=== PATIENT | male | born 1965 | race Hispanic/Latino ===

== ENCOUNTER 2020-05-23 22:46 | Observation (INO) | payer OTHER, SELFPAY ==
[2020-05-23] VITALS (8 sets, daily range): BP systolic 120–144; BP diastolic 63–79; PULSE 61–156; RESP 18–22; O2SAT 95–97; BMI 27.1
--- NOTE | 2020-05-23 22:59 | DI.RAD.S_ITS ---
PROCEDURE: XR CHEST 1V INDICATIONS: Chest pain TECHNIQUE: One view of the chest was acquired. COMPARISON: None. FINDINGS: Surgical changes and devices: Partially visualized right shoulder arthroplasty. Suture anchor in the proximal left humerus.. Lungs and pleura: Lungs are clear. No pleural effusions or pneumothorax. Mediastinum: Mediastinal contours appear normal. Heart size is normal. Bones and chest wall: No suspicious bony lesions. Overlying soft tissues appear unremarkable. IMPRESSION: No acute cardiopulmonary disease process. Dictated by: eJsica Nicholas MD, PhD on 05/24/2020 at 9:11 Approved by: Jesica Nicholas MD, PhD on 05/24/2020 at 9:12
[2020-05-23 23:10] LABS: Add Manual Diff / Slide Review NO; Basophils Absolute Auto 100 /uL (0-100); Basophils Percent Auto 1.3 % (0-2); Eosinophils Absolute Auto 200 /uL (0-450); Eosinophils Percent Auto 2.3 % (2-4); Hematocrit 44.9 % (41-53); Hemoglobin 15.1 g/dL (13.5-17.5); Lymphocytes Absolute Auto 3200 /uL (1100-4500); Lymphocytes Percent Auto 30.7 % (25-40); Mean Corpuscular HGB Conc 33.6 % (30-36); Mean Corpuscular Volume 92.3 fL (80-100); Monocytes Absolute Auto 900 /uL (0-900); Monocytes Percent Auto 8.8 % (3-14); Neutrophils Absolute Auto 5900 /uL (1500-7000); Neutrophils Percent Auto 56.9 % (50-75); Platelet Count 157 X10^3/uL (150-400); Red Blood Cell Count 4.87 X10^6/uL (4.5-5.9); Red Cell Distribution Width 14.3 % (11.6-14.8); White Blood Cell Count 10.3 X10^3/uL (4.5-11.0)
--- NOTE | 2020-05-23 23:14 | ED_ITS ---
HPI - Chest Pain General Chief Complaint: Chest Pain Stated Complaint: chest pains Time Seen by Provider: 05/23/20 22:59 Source: patient History of Present Illness HPI narrative: Patient complains off and on chest pain for the past 1 week. With palpitations. No syncope. No numbness tingling weakness no slurred speech or facial droop. Patient is not on any blood thinners other and baby aspirin daily. Patient does take blood pressure medication and cholesterol medication. No prior history of arrhythmia. Denies any drug use or alcohol abuse. EKGs done immediately and shows AFib with RVR rate of 151 but quickly to transitions to sinus bradycardia rate 57. Patient in no distress. Related Data Home Medications Medication Instructions Recorded Confirmed lisinopril 20 mg PO QDAY #0 11/23/16 multivitamin [Multiple Vitamins] 1 tab PO QDAY #0 06/30/17 05/24/20 Previous Rx's Medication Instructions Recorded aspirin 325 mg PO QDAY #90 tab 11/24/16 atorvastatin [Lipitor] 80 mg PO HS #90 11/24/16 Allergies Allergy/AdvReac Type Severity Reaction Status Date / Time No Known Allergies Allergy Uncoded 05/23/20 23:10 Review of Systems Review of Systems Narrative: GENERAL: Denies chills, fatigue, malaise, fever, sweats. HEENT: Denies sinus pain, ear pain, sore throat, difficulty swallowing RESPIRATORY: Denies dyspnea, cough CARDIOVASCULAR: Complains chest pain, palpitations, denies edema, GASTROINTESTINAL: Denies nausea, vomiting, abdominal pain, diarrhea, constipation, melena. : Denies dysuria, frequency, hematuria MUSCULOSKELETAL: denies muscle or bony pain SKIN: Denies rash, skin lesions NEUROLOGIC: Denies weakness, headache, numbness, change in speech, confusion PSYCHIATRIC: No SI or HI or hallucinations ROS Unobtainable: All systems reviewed & are unremarkable except as noted in HPI and below Patient History Medical History (Updated 05/24/20 @ 03:15 by MARIEBTH Soliman-) Elevated LFTs Hyperlipidemia Hypertension, essential Pancreatitis Social History household members: spouse and children Smoking Status: Current every day smoker alcohol intake: former Exam Narrative Exam Narrative: GENERAL: patient appears stated age. Well-nourished, well- developed patient, in no distress, not toxic not dyspneic HEAD: Normocephalic. EYES: Pupils equal round and reactive. No scleral icterus. No injection no discharge ENT: Mucous membranes moist. No drooling no tongue elevation no trismus no malocclusion NECK: Trachea midline. Non tender CARDIOVASCULAR: Regular rate and rhythm without murmurs, gallops, or rubs. Will have interval change in rhythm becoming irregular regular/tachycardia RESPIRATORY: Clear to auscultation. Breath sounds equal bilaterally. No wheezes, rales, or rhonchi. GASTROINTESTINAL: Abdomen soft, non-tender, nondistended. EXTREMITIES: No gross deformities. BACK: Nontender without deformity or crepitance. No flank tenderness. NEURO: AOx4. SKIN: Warm and dry PSYCH: Not anxious, is cooperative Initial Vital Signs Initial Vital Signs: Vital Signs Pulse Rate 75 05/23/20 22:47 Respiratory Rate 22 05/23/20 22:47 Blood Pressure 135/79 05/23/20 22:47 Pulse Oximetry 97 05/23/20 22:47 Course Course Course Narrative: Patient continues to fluctuate between sinus bradycardia and atrial fibrillation with RVR Decision to Admit Date: 05/23/20 Decision to Admit time: 23:19 Orders Ordered: ED Orders 05/23/20 22:59 XR chest 1V Stat EKG-12 Lead Stat 05/23/20 23:00 Complete Blood Count AUTO DIFF Stat Comprehensive Metabolic Panel Stat D Dimer Stat Lipase Stat Magnesium Stat Partial Thromboplastin Time Stat Prothrombin Time INR Stat Thyroid Stimulating Hormone Stat Troponin & CK Cardiac Panel Stat 05/23/20 23:40 COVID19 Stat Enoxaparin Sodium (Enoxaparin 40 Mg/0.4 Ml Syringe) 40 mg SUBCUT DAILY KARYN DILTIAZEM (Diltiazem 125 Mg/125 Ml-D5w) 125 mg in 125 mls @ 5 mls/hr IV TITRATE KARYN; Protocol Last Titration: 05/24/20 02:45 Dose: 0 mg/hr, 0 mls/hr Documented by: Titration: 05/24/20 02:15 Dose: 5 mg/hr, 5 mls/hr Documented by: Titration: 05/24/20 01:46 Dose: 10 mg/hr, 10 mls/hr Documented by: Admin: 05/24/20 01:07 Dose: 15 mg/hr, 15 mls/hr Documented by: BLU Naloxone HCl (Naloxone 0.4 Mg/Ml Vial) 0.2 mg IV Q2MIN PRN PRN Reason: Opiate Reversal Discontinued Medications DILTIAZEM (Diltiazem 125 Mg/125 Ml-D5w) 125 mg in 125 mls @ 5 mls/hr IV TITRATE KARYN; Protocol Last Titration: 05/23/20 23:58 Dose: 15 mg/hr, 15 mls/hr Documented by: Titration: 05/23/20 23:40 Dose: 10 mg/hr, 10 mls/hr Documented by: Admin: 05/23/20 23:25 Dose: 5 mg/hr, 5 mls/hr Documented by: OMID Reevaluation(s) Reevaluation #1: No changes. Continues to alternate between sinus bradycardia and AFib with RVR Time: 23:19 Consultations Consultation #1: Spoke with cardiology Dr. Murry, start Cardizem drip here. May admit here. Time: 23:19 Consultation #2: Spoke with hospitalist, she will admit patient Time: 23:49 Vital Signs Vital signs: Vital Signs - 8 hr 05/23/20 22:47 05/23/20 23:04 05/23/20 23:09 Pulse Rate 75 153 H 113 H Respiratory Rate 22 Blood Pressure 135/79 144/75 H Pulse Oximetry 97 97 97 05/23/20 23:30 Pulse Rate 105 H Respiratory Rate Blood Pressure Pulse Oximetry 95 MDM - Chest Pain Differential Diagnosis Differential diagnosis: Likely other (New onset atrial fibrillation) Lab Data Attestation: I reviewed the patient's lab results. Result diagrams: 05/23/20 23:00 05/23/20 23:00 Labs: Lab Results 05/23/20 05/23/20 05/23/20 Range/Units 23:00 23:00 23:00 WBC 10.3 (4.5-11.0) X10^3/uL RBC 4.87 (4.5-5.9) X10^6/uL Hgb 15.1 (13.5-17.5) g/dL Hct 44.9 (41-53) % MCV 92.3 (80-100) fL MCH 31.0 (26-34) PG MCHC 33.6 (30-36) % RDW 14.3 (11.6-14.8) % Plt Count 157 (150-400) X10^3/uL Neut % (Auto) 56.9 (50-75) % Lymph % (Auto) 30.7 (25-40) % [place] % (Auto) 8.8 (3-14) % Eos % (Auto) 2.3 (2-4) % Baso % (Auto) 1.3 (0-2) % Neut # (Auto) 5900 (3736-3344) /uL Lymph # (Auto) 3200 (5260-6103) /uL [place] # (Auto) 900 (0-900) /uL Eos # (Auto) 200 (0-450) /uL Baso # (Auto) 100 (0-100) /uL PT 12.2 (10.1-12.7) SECONDS INR 1.1 (0.9-1.3) APTT 36 (26.4-36.2) SECONDS D-Dimer 205 (<230) ng/mL Sodium 136 L (137-145) mmol/L Potassium 4.3 (3.4-5.1) mmol/L Chloride 107 (98-107) mmol/L Carbon Dioxide 24 (22-32) mmol/L BUN 20 (9-20) mg/dL Creatinine 0.78 (0.66-1.25) mg/dL Estimated GFR > 60.0 (>60) mL/min BUN/Creatinine Ratio 25.6 H (6-22) Glucose 95 (70-100) mg/dL Calcium 9.1 (8.4-10.2) mg/dL Magnesium (1.6-2.3) mg/dL Total Bilirubin 0.4 (0.2-1.3) mg/dL AST 27 (17-59) IU/L ALT 19 (<50) IU/L Alkaline Phosphatase 94 (38-126) U/L Total Creatine Kinase 104 (55-170) U/L CK-MB (CK-2) 1.41 (<2.37) ng/mL CK-MB (CK-2) Rel Index 1.4 L (1.5-5.0) % Troponin I < 0.012 (0.01-0.034) ng/mL Total Protein 7.9 (6.3-8.2) g/dL Albumin 4.3 (3.5-5.0) g/dL Globulin 3.6 (1.7-4.1) g/dL Albumin/Globulin Ratio 1.2 (1.0-2.8) Lipase 268 (23-300) U/L TSH (0.47-4.68) uIU/mL 05/23/20 05/23/20 Range/Units 23:00 23:00 WBC (4.5-11.0) X10^3/uL RBC (4.5-5.9) X10^6/uL Hgb (13.5-17.5) g/dL Hct (41-53) % MCV (80-100) fL MCH (26-34) PG MCHC (30-36) % RDW (11.6-14.8) % Plt Count (150-400) X10^3/uL Neut % (Auto) (50-75) % Lymph % (Auto) (25-40) % [place] % (Auto) (3-14) % Eos % (Auto) (2-4) % Baso % (Auto) (0-2) % Neut # (Auto) (8086-9513) /uL Lymph # (Auto) (7873-3766) /uL [place] # (Auto) (0-900) /uL Eos # (Auto) (0-450) /uL Baso # (Auto) (0-100) /uL PT (10.1-12.7) SECONDS INR (0.9-1.3) APTT (26.4-36.2) SECONDS D-Dimer (<230) ng/mL Sodium (137-145) mmol/L Potassium (3.4-5.1) mmol/L Chloride (98-107) mmol/L Carbon Dioxide (22-32) mmol/L BUN (9-20) mg/dL Creatinine (0.66-1.25) mg/dL Estimated GFR (>60) mL/min BUN/Creatinine Ratio (6-22) Glucose (70-100) mg/dL Calcium (8.4-10.2) mg/dL Magnesium 1.8 (1.6-2.3) mg/dL Total Bilirubin (0.2-1.3) mg/dL AST (17-59) IU/L ALT (<50) IU/L Alkaline Phosphatase (38-126) U/L Total Creatine Kinase (55-170) U/L CK-MB (CK-2) (<2.37) ng/mL CK-MB (CK-2) Rel Index (1.5-5.0) % Troponin I (0.01-0.034) ng/mL Total Protein (6.3-8.2) g/dL Albumin (3.5-5.0) g/dL Globulin (1.7-4.1) g/dL Albumin/Globulin Ratio (1.0-2.8) Lipase (23-300) U/L TSH 4.19 (0.47-4.68) uIU/mL Imaging Data Chest x-ray: Radiologist's Impression: Results faxed, chest x-ray no acute disease in the chest ECG Data Attestation: I personally reviewed and interpreted this ECG as follows: Interpretation: First EKG at 11:02 p.m.. Atrial fibrillation with RVR rate 151. No ST elevation or depression repeat EKG at 11:03 p.m.. Sinus bradycardia rate [address] elevation or depression. MDM Narrative Medical decision making narrative: Appropriate for admission. New onset AFib. No cardioversion indicated this time. Reviewed with strategic solutions consultant Discharge Plan Departure Patient Disposition: Admitted as Observation Clinical Impression: Atrial fibrillation, new onset Admit Date/Time: 05/23/20 23:30 Admit Provider: Eunice Kilgore
[2020-05-23 23:20] LABS: PTT Partial Thromboplastin Tim 36 SECONDS (26.4-36.2)
[2020-05-23 23:21] LABS: Alanine Aminotransferase 19 IU/L (<50); Albumin 4.3 g/dL (3.5-5.0); Albumin Globulin Ratio 1.2 (1.0-2.8); Alkaline Phosphatase 94 U/L (38-126); Aspartate Aminotransferase 27 IU/L (17-59); BUN Creatinine Ratio 25.6 (6-22); Bilirubin Total 0.4 mg/dL (0.2-1.3); Blood Urea Nitrogen 20 mg/dL (9-20); Calcium 9.1 mg/dL (8.4-10.2); Carbon Dioxide 24 mmol/L (22-32); Chloride 107 mmol/L (98-107); Creatine Kinase 104 U/L (55-170); Estimated Glomerular Filt Rate > 60.0 mL/min (>60); Globulin 3.6 g/dL (1.7-4.1); Glucose 95 mg/dL (70-100); HEMOLYSIS 29 (0-50); Lipase 268 U/L (23-300); Potassium 4.3 mmol/L (3.4-5.1); Sodium 136 mmol/L (137-145); Total Protein 7.9 g/dL (6.3-8.2)
[2020-05-23] MEDS: DILTIAZEM 125 MG/125 ML PIGGYBACK IV (23:25)
[2020-05-23 23:28] LABS: INR 1.1 (0.9-1.3); Prothrombin Time 12.2 SECONDS (10.1-12.7)
[2020-05-23 23:31] LABS: D Dimer 205 ng/mL (<230)
[2020-05-23 23:32] LABS: Troponin I < 0.012 ng/mL (0.01-0.034)
[2020-05-23 23:36] LABS: CKMB % Relative Index 1.4 % (1.5-5.0); Creatine Kinase MB 1.41 ng/mL (<2.37)
[2020-05-23 23:38] LABS: Magnesium 1.8 mg/dL (1.6-2.3)
[2020-05-24] VITALS (39 sets, daily range): BP systolic 82–120; BP diastolic 50–74; PULSE 38–130; RESP 11–31; TEMP 36.1–36.7; O2SAT 95–99; BMI 27.6
[2020-05-24 00:07] LABS: COVID19 -Nasal RAPID Negative (Negative)
[2020-05-24 00:10] LABS: Thyroid Stimulating Hormone 4.19 uIU/mL (0.47-4.68)
[2020-05-24] MEDS: DILTIAZEM 125 MG/125 ML PIGGYBACK 15 MG IV (01:07)
--- NOTE | 2020-05-24 01:17 | PC.ADMIT ---
Addendum entered by Irais Gray R.N. 05/24/20 05:26: 0245 Diltiazem GTT off. Patient with HR sustaining 45-60's and BP down to 90/50 with MAP > 65. Hospitalist aware. Tele currently SB with bigeminal PVCs and PACs. Patient resting in NAD. Addendum entered by Irais Gray R.N. 05/24/20 01:47: Patient sustaining SB in the 40's for approximately 10 minutes with frequent bigeminal PVCs. Diltiazem decreased to 10 mg/hour. Patient asleep in NAD. Original Note: [address] Admission Note: The patient,Ayad Grigsby,55 y/o, was given written information regarding hospital policies, unit procedures and contact persons. Patient's smoking status: Current every day smoker. Vital Signs - 8 hr 05/23/20 22:47 05/23/20 23:04 05/23/20 23:09 Temperature Pulse Rate 75 153 H 113 H Respiratory Rate 22 Blood Pressure 135/79 144/75 H Pulse Oximetry 97 97 97 05/23/20 23:30 05/23/20 23:31 05/23/20 23:40 Temperature Pulse Rate 105 H 61 145 H Respiratory Rate Blood Pressure 125/68 131/69 Pulse Oximetry 95 95 96 05/23/20 23:50 05/23/20 23:58 05/24/20 00:00 Temperature Pulse Rate 65 146 H 130 H Respiratory Rate 18 31 H Blood Pressure 120/63 104/64 Pulse Oximetry 95 95 05/24/20 00:10 05/24/20 00:20 05/24/20 00:50 Temperature 97.0 F L Pulse Rate 57 L 103 H 69 Respiratory Rate 23 23 20 Blood Pressure 105/61 104/54 L 104/62 Pulse Oximetry 95 95 96 05/24/20 01:10 Temperature Pulse Rate 55 L Respiratory Rate 22 Blood Pressure 106/66 Pulse Oximetry 95 Patient arrived to room 231 via stretcher. Able to pivot to bed without issue. A/O X 3 in NAD. VSS, telemetry rapid Afib with variable HR. Diltiazem GTT infusing at 15mg/hour per protocol. HR as low as 45 and as high as 150. BP stable. Patient reports chest discomfort at rest described as substernal and dull that is intermittent. Declines analgesia at this time. Sp02 95-98% RA. Urinal to void. Refusing SCD's. Educated on Afib and the importance of SCD's and continued to decline. Oriented to room, call light and plan of care. Verbalized understanding.
--- NOTE | 2020-05-24 03:01 | PM.HP.1 ---
History of Present Illness History of Present Illness Date Patient Seen: 05/24/20 Time Patient Seen: 00:17 Chief complaint: chest pains Narrative: Patient is a 55-year-old male Ayad Grigsby who presented to the ER with complaints of off and on chest pain x 1 week with palpitations and no syncope, numbness, weakness, slurred speech or facial droop. Patient states that the chest pain comes and goes and he gets shortness of breath when it starts beating really fast. Nothing seems to worsen the pain nor provoke it, he denies diaphoresis, changes in balance walking or coordination. Patient recalls that he was told in the emergency room at [facility] on a previous visit that he had had a stroke. Patient states that he has been having left hand numbness and numbness to the left side of his mouth for an undetermined amount of time without difficulty swallowing or slurred speech but that this sensation is similar to what he experienced a few years ago when he was said to have had a stroke. Patient recalls that his brother has had 3 open-heart procedures with stent placement and that his father of an aneurysm. Patient has a history hypertension and hyperlipidemia. Patient is not on any blood thinners other and baby aspirin daily. No prior history of arrhythmia. Denies any drug use or alcohol abuse. In the emergency room EKGs done immediately and shows AFib with RVR rate of 151 but quickly to transitions to sinus bradycardia rate 57. Patient was in no distress. CK-MB 1.4, troponin negative, lipase 268, BUN creatinine ratio 25.6. Patient's AFib continued with an uncontrolled rate insert was placed on a diltiazem drip and admitted. Patient History Medical History (Updated 05/24/20 @ 03:15 by [facility]) Elevated LFTs Hyperlipidemia Hypertension, essential Pancreatitis Family & Social History Social History: household members spouse,children Prior Living Arrangements House Safety & Behavioral: Feels Safe in Current Yes Environment Been Physically Hurt or No Threatened By a Person Suicidal Ideation Description None Suicide Plan Description No Plan Tobacco & Substance use: Tobacco type cigarettes Smoking Status Current every day smoker alcohol intake former alcohol intake frequency holiday/special occasion Substance Use Type does not use Meds Home Medications and Allergies Home Medications Medication Instructions Recorded Confirmed Type lisinopril 20 mg PO QDAY #0 11/23/16 History aspirin 325 mg PO QDAY #90 tab 11/24/16 05/24/20 Rx atorvastatin [Lipitor] 80 mg PO HS #90 11/24/16 Rx multivitamin [Multiple Vitamins] 1 tab PO QDAY #0 06/30/17 05/24/20 History Allergies Allergy/AdvReac Type Severity Reaction Status Date / Time No Known Allergies Allergy Uncoded 05/23/20 23:10 Review of Systems Review of Systems ROS: Yes All systems reviewed with the patient and are negative except as otherwise documented Cardiovascular Cardiovascular: Reports chest pain and Reports rapid heart rate Exam Vital Signs (past 8 hours): - 05/23/20 22:47 05/23/20 23:04 05/23/20 23:09 Temperature Pulse Rate 75 153 H 113 H Respiratory Rate 22 Blood Pressure 135/79 144/75 H Pulse Oximetry 97 97 97 05/23/20 23:30 05/23/20 23:31 05/23/20 23:40 Temperature Pulse Rate 105 H 61 145 H Respiratory Rate Blood Pressure 125/68 131/69 Pulse Oximetry 95 95 96 05/23/20 23:50 05/23/20 23:58 05/24/20 00:00 Temperature Pulse Rate 65 146 H 130 H Respiratory Rate 18 31 H Blood Pressure 120/63 104/64 Pulse Oximetry 95 95 05/24/20 00:10 05/24/20 00:20 05/24/20 00:41 Temperature Pulse Rate 57 L 103 H 66 Respiratory Rate 23 23 25 H Blood Pressure 105/61 104/54 L Pulse Oximetry 95 95 96 05/24/20 00:50 05/24/20 01:00 05/24/20 01:10 Temperature 97.0 F L Pulse Rate 69 59 L 55 L Respiratory Rate 20 20 22 Blood Pressure 104/62 106/66 106/66 Pulse Oximetry 96 95 95 05/24/20 01:20 05/24/20 01:30 05/24/20 01:40 Temperature Pulse Rate 97 H 48 L 49 L Respiratory Rate 18 15 15 Blood Pressure 106/73 102/55 L Pulse Oximetry 97 96 96 05/24/20 02:00 05/24/20 02:20 05/24/20 02:21 Temperature Pulse Rate 45 L 46 L 45 L Respiratory Rate 15 14 13 Blood Pressure 101/56 L 86/53 L Pulse Oximetry 96 97 97 Oxygen Delivery Method Room Air Oxygen Flow Rate 0 Narrative Exam Narrative: GENERAL: patient appears stated age. Well-nourished, well-developed patient, in no distress, not toxic not dyspneic HEAD: Normocephalic. EYES: Pupils equal round and reactive. No scleral icterus. No injection no discharge ENT: Mucous membranes moist. No drooling no tongue elevation no trismus no malocclusion NECK: Trachea midline. Non tender CARDIOVASCULAR: Regular rate and rhythm without murmurs, gallops, or rubs. Will have interval change in rhythm becoming irregular regular/tachycardia RESPIRATORY: Clear to auscultation. Breath sounds equal bilaterally. No wheezes, rales, or rhonchi. GASTROINTESTINAL: Abdomen soft, non-tender, nondistended. EXTREMITIES: No gross deformities. BACK: Nontender without deformity or crepitance. No flank tenderness. NEURO: AOx4. SKIN: Warm and dry PSYCH: Not anxious, is cooperative Objective Labs Result Diagrams: 05/23/20 23:00 05/23/20 23:00 Labs: Laboratory Results - last 24 hr 05/23/20 05/23/20 05/23/20 23:00 23:00 23:00 WBC 10.3 RBC 4.87 Hgb 15.1 Hct 44.9 MCV 92.3 MCH 31.0 MCHC 33.6 RDW 14.3 Plt Count 157 Neut % (Auto) 56.9 Lymph % (Auto) 30.7 [place] % (Auto) 8.8 Eos % (Auto) 2.3 Baso % (Auto) 1.3 Neut # (Auto) 5900 Lymph # (Auto) 3200 [place] # (Auto) 900 Eos # (Auto) 200 Baso # (Auto) 100 PT 12.2 INR 1.1 APTT 36 D-Dimer 205 Sodium 136 L Potassium 4.3 Chloride 107 Carbon Dioxide 24 BUN 20 Creatinine 0.78 Estimated GFR > 60.0 BUN/Creatinine Ratio 25.6 H Glucose 95 Calcium 9.1 Magnesium Total Bilirubin 0.4 AST 27 ALT 19 Alkaline Phosphatase 94 Total Creatine Kinase 104 CK-MB (CK-2) 1.41 CK-MB (CK-2) Rel Index 1.4 L Troponin I < 0.012 Total Protein 7.9 Albumin 4.3 Globulin 3.6 Albumin/Globulin Ratio 1.2 Lipase 268 TSH COVID-19 PCR 05/23/20 05/23/20 05/23/20 23:00 23:00 23:40 WBC RBC Hgb Hct MCV MCH MCHC RDW Plt Count Neut % (Auto) Lymph % (Auto) [place] % (Auto) Eos % (Auto) Baso % (Auto) Neut # (Auto) Lymph # (Auto) [place] # (Auto) Eos # (Auto) Baso # (Auto) PT INR APTT D-Dimer Sodium Potassium Chloride Carbon Dioxide BUN Creatinine Estimated GFR BUN/Creatinine Ratio Glucose Calcium Magnesium 1.8 Total Bilirubin AST ALT Alkaline Phosphatase Total Creatine Kinase CK-MB (CK-2) CK-MB (CK-2) Rel Index Troponin I Total Protein Albumin Globulin Albumin/Globulin Ratio Lipase TSH 4.19 COVID-19 PCR Negative Assessment & Plan Assessment & Plan narrative: Patient is a 55-year-old male admitted with new onset uncontrolled rate atrial fibrillation with RVR with a history of CVA, family history of cardiovascular conditions, and a medical history of hypertension, and hyperlipidemia. Patient was admitted to the ICU in telemedicine on a Diltiazem Drip requiring a high acuity of critical care management decision-making. 1. Atrial fibrillation with RVR, rate of 151, acute, present on admission -CK-MB 1.4, troponin negative, lipase 268, BUN creatinine ratio 25.6, potassium at goal 4.3, Mag pending. -patient placed on diltiazem drip titrating for sustained HR <100, monitoring blood pressure and heart rate -monitoring: vital signs Q hour, I&O Q shift, patient placed in ICU telemedicine -enoxaparin 40 mg, and SCDs -EKG : Normal sinus, AFib with RVR with a rate at 1:[address] changes, chest x-ray: No acute disease process present, CK-MB negative troponin negative, head CT negative, labs ordered: D-dimer, lipase, magnesium, PT, TSH, troponin, CK-MB, echo to ordered for tomorrow. 2. Essential hypertension, chronic, well controlled, not present on admission -continue patient's lisinopril 20 mg once daily 3. Hyperlipidemia, chronic, not present on admission -continue patient's atorvastatin 80 mg once daily Code status: Full code Decision maker: [id number]: COVID PCR: Negative VTE prophylaxis: Enoxaparin 40 mg Scores GCS [place] coma scale eye opening: Spontaneous [place] coma scale verbal response: Orientated [place] coma scale motor response: Obey commands Kate coma scale total score: 15 NIHSS Level of Conciousness: Alert, keenly responsive Ask month/age: Answers both questions correctly. Open/close eyes, close hand: Performs both tasks correctly Best gaze horizontal: Normal Visual bustillo: No visual loss Facial palsy: Normal symetrical movement Left arm drift: No drift for full 10 sec Right arm drift: No drift for full 10 sec Left leg drift: No drift for full 5 sec Right leg drift: No drift for full 5 sec Limb ataxia: Absent Sensory on face/arms/legs: Normal, no sensory loss Best language: No aphasia, normal Dysarthria: Normal Extinction or inattention: No abnormality Total NIH Stroke scale score: 0 CHADS-VASc Congestive heart failure: no Hypertension: yes Age 75 years or older: no Diabetes mellitus: no Stroke, TIA, or TE: yes Vascular disease: no Age 65 to 74 years: no Sex category (female): Male CHADS-VASc Score: 3 Quality VTE Deep Vein Thrombosis/Pulmonary Embolism Present on Admission: No
[2020-05-24 06:43] LABS: D Dimer 228 ng/mL (<230)
[2020-05-24] MEDS: METOPROLOL ER 25 MG TABLET 12.5 MG PO (09:19)
[2020-05-24] MEDS: ENOXAPARIN 40 MG/0.4 ML SYRINGE SUBCUT (09:19)
[2020-05-24] MEDS: ASPIRIN EC 325 MG TABLET PO (09:19)
--- NOTE | 2020-05-24 09:40 | PC.NURSE ---
0745- Dr. Gustafson on rounds. Reported pt HR 40s-60s SB frequent/bigeminal PVCs. Clarified metoprolol dosing. Orders received. Pt is AO x4. He states he has generalized chest discomfort 5/10, not localized to any specific area, describes as dull. He states this is an improvement from admission when his discomfort was 8-9/10. He states it is not associated with activity. He notes palpitations and shortness of breath with increased HRs. He states that getting up and walking around helps with the discomfort and improves his breathing. He reports having a similar episode a long time ago (unsure of date) but states that it improved without intervention/medical attention. He reports baseline numbness to left side of mouth and left fingers due to a past stroke. He denies dizziness/lightheadedness/visual changes. He is making his needs known with clear, logical speech and asking appropriate questions regarding plan of care. He is using call light and agreeable to wait for assist before getting OOB.
--- NOTE | 2020-05-24 11:30 | DI.ECHO.S_ITS ---
[facility]---------+ [facility] +---------+ : : [address] : : : : [id number] : : : : Phone: [phone]+ Echocardiogram Report + + :Name: DENISE REDMAN Study Date: 05/24/2020 Height: 66 in : :[facility] Weight: 171 lb : : Gender: Male BSA: 1.9 m2 : :: 1965 Age: 55 yrs BP: 102/60 mmHg: :Reason For Study: New onset atrial fibrillation : : Performed By: Gabriella Lopze : :Referring: HERNÁN COLEMAN : + + Interpretation Summary The left ventricle is normal in size and wall thickness. The ejection fraction is estimated to be 60-65%. The right ventricle is normal in size and function. There is mild tricuspid regurgitation. The right ventricular systolic pressure is estimated to be at least 22 mmHg based on an estimated right atrial pressure of 3 mm Hg. Procedure: A two-dimensional transthoracic echocardiogram with color flow and Doppler was performed. The study quality was technically adequate. There is no prior echocardiogram noted for this patient. The patient was in sinus bradycardia with heart rates between 50-54 bpm during the exam. Left Ventricle: The left ventricle is normal in size and wall thickness. There is no thrombus. The ejection fraction is estimated to be 60-65%. There are no focal wall motion abnormalities. Diastolic parameters suggest probable normal left ventricular diastolic function and normal filling pressures. Right Ventricle: The right ventricle is normal in size and function. Atria: The left atrium is moderately dilated. Right atrial size is normal. There is no Doppler evidence for an interatrial shunt. The thickening of interatrial septum suggests lipomatous hypertrophy. Mitral Valve: The mitral valve is normal in structure and function. There is trace mitral regurgitation. Aortic Valve: The aortic valve is trileaflet. The aortic valve opens well. There is no aortic valve stenosis. No aortic regurgitation is present. Tricuspid Valve: The tricuspid valve is normal. There is mild tricuspid regurgitation. The right ventricular systolic pressure is estimated to be at least 22 mmHg based on an estimated right atrial pressure of 3 mm Hg. Pulmonic Valve: The pulmonic valve is not well seen, but is grossly normal. Great Vessels: The aortic root is borderline dilated. The ascending aorta is normal in size. The pulmonary artery is normal size. The IVC is of normal diameter and collapses greater than 50% with a sniff. This suggests a low right atrial pressure of 3 mm Hg. Pericardium/ Pleura There is no pericardial effusion. MMode/2D Measurements & Calculations LVIDd: 5.1 cm LVOT diam: 2.2 cm LVIDs: 3.6 cm Ao root diam: 3.6 cm FS: 29.3 % asc Aorta Diam: 3.0 cm IVSd: 0.89 cm LVPWd: 0.85 cm LV bermudez. diameter/BSA (cm/m^2): 2.7 LV sys. diameter/BSA (cm/m^2): 1.9 LA A2 area: 26.5 cm2 RA long axis: 5.3 cm LA A4 area: 25.6 cm2 RA area: 18.7 cm2 LA length (vol): 6.7 cm RA vol: 56.2 ml LA vol: 86.5 ml RA : 30.1 ml/m2 LA vol index: 46.2 ml/m2 IVC diam: 1.9 cm RVD1 (basal): 3.3 cm TAPSE: 1.9 cm Doppler Measurements & Calculations Ao V2 max: 145.3 cm/sec LVOT Max Kenny: 126.2 cm/sec Ao V2 mean: 100.0 cm/sec LV V1 max P.4 mmHg Ao max P.4 mmHg LV V1 VTI: 24.8 cm Ao mean P.5 mmHg ELAN(I,D): 3.1 cm2 Ao V2 VTI: 29.4 cm ELAN(V,D): 3.2 cm2 sev ratio: 0.84 ELAN indexed to BSA (cm^2/m^2): 1.7 MV E max kenny: 75.6 cm/sec TR max kenny: 218.4 cm/sec MV A max kenny: 43.1 cm/sec TR max P.1 mmHg MV E/A: 1.8 PA V2 max: 79.9 cm/sec Med Peak E' Kenny: 7.9 cm/sec PA V2 mean: 57.4 cm/sec E/E' med: 9.6 PA mean P.5 mmHg Lat Peak E' Kenny: 11.2 cm/sec PA Accel Time: 0.15 sec E/E' lat: 6.8 E/e' average: 8.2 MV P1/2t: 67.5 msec MV P1/2t max kenny: 76.1 cm/sec SV(LVOT): 91.3 ml MVA(P12t): 3.3 cm2 Reading Physician:01:33 PM
--- NOTE | 2020-05-24 14:22 | P.DS_ITS ---
History of Present Illness History of Present Illness Date Patient Seen: 05/24/20 Time Patient Seen: 14:22 Chief complaint: chest pains Narrative: As per MARIBETH Soliman: Patient is a 55-year-old male Ayad Grigsby who presented to the ER with complaints of off and on chest pain x 1 week with palpitations and no syncope, numbness, weakness, slurred speech or facial droop. Patient states that the chest pain comes and goes and he gets shortness of breath when it starts beating really fast. Nothing seems to worsen the pain nor provoke it, he denies diaphoresis, changes in balance walking or coordination. Patient recalls that he was told in the emergency room at [facility] on a previous visit that he had had a stroke. Patient states that he has been having left hand numbness and numbness to the left side of his mouth for an undetermined amount of time without difficulty swallowing or slurred speech but that this sensation is similar to what he experienced a few years ago when he was said to have had a stroke. Patient recalls that his brother has had 3 open-heart procedures with stent placement and that his father of an aneurysm. Patient has a history hypertension and hyperlipidemia. Patient is not on any blood thinners other and baby aspirin daily. No prior history of arrhythmia. Denies any drug use or alcohol abuse. In the emergency room EKGs done immediately and shows AFib with RVR rate of 151 but quickly to transitions to sinus bradycardia rate 57. Patient was in no distress. CK-MB 1.4, troponin negative, lipase 268, BUN creatinine ratio 25.6. Patient's AFib continued with an uncontrolled rate insert was placed on a diltiazem drip and admitted. Discharge Providers Provider Date of admission: 05/23/20 23:30 Discharge Date: 05/24/20 Discharge provider: Rodrigo Gustafson DO Summary Hospital Course Discharge Diagnosis: 1. paroxysmal atrial fibrillation with rapid ventricular response, acute, present on admission, new diagnosis, resolved. 2. Essential hypertension, chronic, stable. 3. HLD, chronic, stable. Hospital Course: This is a 55-year-old male with a past medical history of hypertension and hyperlipidemia who presented with 1 week of chest discomfort wi th palpitations. He was found to be in AFib with RVR. He was admitted after his rate was unable to be controlled and he was placed on a diltiazem infusion. He quickly converted to normal sinus rhythm and remained in normal sinus rhythm after diltiazem infusion had been stopped. He was started on low-dose metoprolol 12.5 mg twice daily. Echocardiogram was unremarkable and showed a normal ejection fraction. His chads Vasc score was 1 for only hypertension and the patient is already taking full-dose aspirin. He denied prior CVA or history of diabetes. I recommended that he follow-up with his primary care provider for possible referreal to Cardiology next week. Exam Vital Signs (past 8 hours): - 05/24/20 06:23 05/24/20 06:24 05/24/20 06:40 Temperature Pulse Rate 82 68 48 L Respiratory Rate 16 18 22 Blood Pressure 100/56 L 100/56 L 115/74 Pulse Oximetry 98 99 96 05/24/20 07:00 05/24/20 07:20 05/24/20 07:40 Temperature Pulse Rate 49 L 50 L 48 L Respiratory Rate 18 22 16 Blood Pressure 102/60 120/63 103/65 Pulse Oximetry 96 98 97 05/24/20 08:00 05/24/20 08:55 05/24/20 09:00 Temperature 97.4 F L Pulse Rate 50 L 50 L 54 L Respiratory Rate 18 31 H 26 H Blood Pressure 113/61 116/66 Pulse Oximetry 96 97 98 05/24/20 12:00 Temperature 98.1 F Pulse Rate 53 L Respiratory Rate 20 Blood Pressure 107/64 Pulse Oximetry 97 Oxygen Delivery Method Room Air Oxygen Flow Rate 0 Narrative Exam Narrative: GENERAL APPEARANCE: Well developed, well nourished, in no acute distress. SKIN: Inspection of the skin reveals no rashes, ulcerations or petechiae. HEENT: Normocephalic atraumatic, extraocular muscles are intact, oropharynx is clear and mucous membranes are moist, neck is supple without adenopathy NECK: Supple and symmetric. There was no thyroid enlargement, and no tenderness, or masses were felt. CHEST: Normal AP diameter and normal contour without any kyphoscoliosis. LUNGS: Auscultation of the lungs revealed no wheezes, rhonchi, or rales. CARDIOVASCULAR: There was a regular rate and rhythm without any murmurs, gallops, rubs. Peripheral pulses were 2+ and symmetric. ABDOMEN: Soft and nontender with normal bowel sounds. No ascites was noted. MUSCULOSKELETAL: There was no tenderness or effusions noted. Muscle strength and tone were normal. EXTREMITIES: No cyanosis, clubbing or edema. NEUROLOGIC: Alert and oriented x 3. Normal affect. Gait was normal. Strength is +5/5 in the Upper Extremities and Lower Extremities Bilaterally. Sensation to touch was normal. Objective Labs Result Diagrams: 05/23/20 23:00 05/23/20 23:00 Labs: Laboratory Results - last 24 hr 05/23/20 05/23/20 05/23/20 23:00 23:00 23:00 WBC 10.3 RBC 4.87 Hgb 15.1 Hct 44.9 MCV 92.3 MCH 31.0 MCHC 33.6 RDW 14.3 Plt Count 157 Neut % (Auto) 56.9 Lymph % (Auto) 30.7 Gladwin % (Auto) 8.8 Eos % (Auto) 2.3 Baso % (Auto) 1.3 Neut # (Auto) 5900 Lymph # (Auto) 3200 Gladwin # (Auto) 900 Eos # (Auto) 200 Baso # (Auto) 100 PT 12.2 INR 1.1 APTT 36 D-Dimer 205 Sodium 136 L Potassium 4.3 Chloride 107 Carbon Dioxide 24 BUN 20 Creatinine 0.78 Estimated GFR > 60.0 BUN/Creatinine Ratio 25.6 H Glucose 95 Calcium 9.1 Magnesium Total Bilirubin 0.4 AST 27 ALT 19 Alkaline Phosphatase 94 Total Creatine Kinase 104 CK-MB (CK-2) 1.41 CK-MB (CK-2) Rel Index 1.4 L Troponin I < 0.012 Total Protein 7.9 Albumin 4.3 Globulin 3.6 Albumin/Globulin Ratio 1.2 Lipase 268 TSH Nasal Screen MRSA (PCR) COVID-19 PCR 05/23/20 05/23/20 05/23/20 23:00 23:00 23:40 WBC RBC Hgb Hct MCV MCH MCHC RDW Plt Count Neut % (Auto) Lymph % (Auto) Gladwin % (Auto) Eos % (Auto) Baso % (Auto) Neut # (Auto) Lymph # (Auto) Gladwin # (Auto) Eos # (Auto) Baso # (Auto) PT INR APTT D-Dimer Sodium Potassium Chloride Carbon Dioxide BUN Creatinine Estimated GFR BUN/Creatinine Ratio Glucose Calcium Magnesium 1.8 Total Bilirubin AST ALT Alkaline Phosphatase Total Creatine Kinase CK-MB (CK-2) CK-MB (CK-2) Rel Index Troponin I Total Protein Albumin Globulin Albumin/Globulin Ratio Lipase TSH 4.19 Nasal Screen MRSA (PCR) COVID-19 PCR Negative 05/24/20 05/24/20 00:40 06:25 WBC RBC Hgb Hct MCV MCH MCHC RDW Plt Count Neut % (Auto) Lymph % (Auto) Gladwin % (Auto) Eos % (Auto) Baso % (Auto) Neut # (Auto) Lymph # (Auto) Gladwin # (Auto) Eos # (Auto) Baso # (Auto) PT INR APTT D-Dimer 228 Sodium Potassium Chloride Carbon Dioxide BUN Creatinine Estimated GFR BUN/Creatinine Ratio Glucose Calcium Magnesium Total Bilirubin AST ALT Alkaline Phosphatase Total Creatine Kinase CK-MB (CK-2) CK-MB (CK-2) Rel Index Troponin I Total Protein Albumin Globulin Albumin/Globulin Ratio Lipase TSH Nasal Screen MRSA (PCR) Negative for mrsa COVID-19 PCR PFSH Medical History Elevated LFTs Hyperlipidemia Hypertension, essential Pancreatitis Family History (Updated 05/24/20 @ 15:26 by Rodrigo Gustafson DO) Other Hypertension Social History household members: spouse and children Smoking Status: Current every day smoker alcohol intake: former Discharge Plan Discharge Plan Patient Disposition: Home Provider Discharge Comment: You were admitted to the hospital with atrial fibrillation, this resolved after some medications. I have started you on a medication to slow your heart rate slightly, please follow up with your primary care provider next week if possible to check on your symptoms and potentially talk about a referral to a printed circuit layout taper. Your risk of stroke is low, as your echocardiogram was normal, so only an aspirin is recommended at this time to reduce stroke risk from this arrythmia. Discharge orders & Medications Prescriptions: New metoprolol succinate 25 mg tablet extended release 24 hr 12.5 mg PO BID 30 Days Qty: 30 RF: 0 Continued aspirin 325 MG tablet,delayed release (DR/EC) 325 mg PO QDAY Qty: 90 RF: 0 multivitamin [Multiple Vitamins] 1 EACH tablet 1 tab PO QDAY Qty: 0 RF: 0 lisinopril 20 mg tablet 20 mg PO DAILY RF: 0 simvastatin 10 mg tablet 10 mg PO BEDTIME RF: 0 Discharge Health Status Health Concerns: paroxysmal atrial fibrillation Diet/Activity/Treatments Diet: Diet as Tolerated Activity: As tolerated Visit Report/Discharge Packet Instructions: DI for Atrial Fibrillation, Metoprolol Discharge Data Attending Provider: Eunice Kilgore VTE Deep Vein Thrombosis/Pulmonary Embolism Present on Admission: No
--- NOTE | 2020-05-24 15:04 | PC.NURSE ---
Pt dc'd to home per order. Provided d/c education, importance of f/u care, stroke education, medication regimen. Instructed pt that rx was sent to pharmacy electronically. Pt verbalizes understanding. Removed PIV and telemetry. Pt ambulated to POV in no distress with all belongings.
--- NOTE | 2020-05-24 15:08 | CM.DANOTE ---
Removed IV and Tele, reviewed d/c plan , meds and f/u with pcp next week. All questions answered. Pt ambulated to private vehicle.
--- NOTE | 2020-05-24 16:15 | CM.DANOTE ---
Discharge Planning/Care Management DCP: assessment: case received and discussed in Team Rounds. Dr. Gustafson stated pt would have ECHO today and would likely d/c to home afterwards. He noted that pt was a functionally independent 55 year old and expected he would have no d/c planning needs. A check in now shows that pt was ok'd for home and left this afternoon for his home in [place] Payer: [facility] and Medicare CM Discharge Assessment Start: 05/24/20 16:15 Freq: Status: Active Protocol: Document 05/24/20 16:15 ITV (Rec: 05/24/20 16:15 ITV [id number]) Discharge Planning Assessment Advance Directives? No History Provided By Medical Record Prior Living Arrangements House Household Members spouse,children Independent with ADL's Yes Is patient alert and oriented? Yes
== END 2020-05-24 15:00 | disposition home or self-care (01) ==
LOC: ED 23:20 → AC 23:31 → ICU 05-24 00:33
PROVIDERS: Admitting Provider Nurse Practitioner Family; Emergency Provider Emergency Medicine; Referring Provider Emergency Medicine; Visit Provider Nurse Practitioner Family
DX: I48.91 Unspecified atrial fibrillation (principal); R07.9 Chest pain, unspecified; F17.210 Nicotine dependence, cigarettes, uncomplicated; I10 Essential (primary) hypertension; E78.5 Hyperlipidemia, unspecified; Z86.73 Personal history of transient ischemic attack (TIA), and cerebral infarction without residual deficits; Z20.828 Contact with and (suspected) exposure to other viral communicable diseases
CPT/HCPCS: 36415; 71045; 80053; 82550; 82553; 83690; 83735; 84443; 84484; 85025; 85379; 85610; 85730; 87635; 87797; 93005; 93010; 93306; 96365; 96366; 96372; 99283; 99284; G0378; J1650

== ENCOUNTER → 2021-07-07 08:44 | Outpatient (CLI) | payer OTHER, SELFPAY ==
[2020-05-24 00:08] VITALS: BMI 27.6
[2021-07-07 11:19] LABS: COVID19 -Nasal RAPID Negative (Negative)
== END ==
PROVIDERS: Visit Provider Family Medicine Sleep Medicine
DX: Z20.822 Contact with and (suspected) exposure to COVID-19 (principal)
CPT/HCPCS: 87635; C9803

== ENCOUNTER → 2021-07-08 14:16 | Outpatient (CLI) | payer OTHER, SELFPAY ==
[2020-05-24 00:08] VITALS: BMI 27.6
--- NOTE | 2021-07-08 | DI.NM.S_ITS ---
PROCEDURE: NM EXERCISE TREADMILL NON NUC COMPARISON: None. INDICATIONS: Paroxysmal atrial fibrillation FINDINGS: Resting ECG sinus rhythm with PACs. Rhythm strip captured 1 episode of PAT 10 beats. Mike protocol 7:03, 68% peak predicted heart rate, max BP 140/80, 10.1 METS, GEGE +23%. Stress ECG sinus tachycardia, no ST segment changes, PACs in recovery. No complaints of chest pain or anginal symptoms with exercise. IMPRESSION: 1. No evidence of exercise-induced ischemia with submaximal heart rate. 2. PACs and PAT at rest, resolved during exercise but PACs resumed in recovery. 3. Blunted heart rate response to exercise however patient took diltiazem prior to the exam. 4. Reduced exercise capacity. Dictated by: Eve Eller D.O. on 07/08/2021 at 16:59 Approved by: Eve Eller M.D. on 07/08/2021 at 17:07
== END ==
PROVIDERS: PCP Internal Medicine; Referring Provider Internal Medicine Cardiovascular Disease; Visit Provider Internal Medicine Cardiovascular Disease
DX: I48.0 Paroxysmal atrial fibrillation (principal); I10 Essential (primary) hypertension; E78.5 Hyperlipidemia, unspecified; F17.200 Nicotine dependence, unspecified, uncomplicated; Z86.73 Personal history of transient ischemic attack (TIA), and cerebral infarction without residual deficits
CPT/HCPCS: 93017